=== PATIENT | female | born 1935 | race Asian ===

== ENCOUNTER 2017-04-07 13:42 | Inpatient (IN) | payer MEDICARE, MEDICAID ==
[~2017-04-07] VITALS: Ht 162.6 cm; Wt 63.5 kg
--- NOTE | 2017-04-07 13:48 | Emergency Room Report ---
History of Present Illness General Chief Complaint: Generalized Weakness Source: Patient, EMS Present Illness HPI Patient is 81-year-old female brought in by EMS after increased generalized weakness and decreased appetite. Patient had prior history of seizure disorder as well as dementia. She not been eating for the past 3 days. Patient had been a generalized weak. She has a caregiver at home. Patient had been sent in from [facility]. Patient's primary care physician and requested Dr. Harper take care of the patient. Allergies: Coded Allergies: No Known Allergies (Unverified , 04/07/17) Patient History Past Medical History: see triage record Reviewed Nursing Documentation: PMH: Agreed, PSxH: Agreed Review of Systems All Other Systems: limited - by mental status Physical Exam Sp02 EP Interpretation: reviewed, normal General Appearance: normal inspection, well appearing, no apparent distress, alert, GCS 15 Head: atraumatic ENT: normal ENT inspection, hearing grossly normal, normal voice Neck: normal inspection, full range of motion, supple, no bony tend Respiratory: normal inspection, lungs clear, normal breath sounds, no respiratory distress, no retraction, no wheezing Cardiovascular #1: regular rate, rhythm, no edema Gastrointestinal: normal inspection, normal bowel sounds, non tender, soft, no guarding, no hernia Genitourinary: no CVA tenderness Musculoskeletal: normal inspection, back normal, normal range of motion Neurologic: normal inspection, alert, responsive, speech normal Psychiatric: normal inspection, judgement/insight normal, mood/affect normal Skin: normal inspection, normal color, no rash Medical Decision Making Diagnostic Impression: Primary Impression: Episode of generalized weakness Additional Impressions: Dehydration Failure to thrive ER Course Patient presented for generalized weakness.Patient presented for generalized weakness. Differential diagnosis included was not limited to anemia, urinary tract infection, electrolyte abnormality, hypothyroidism, myocardial infarction , myasthenia gravis, dehydration, among others. Because of complexity of patient's case laboratory testing and imaging studies were ordered.Patient started on IV fluids. EKG interpreted by me showed normal sinus rhythm with a rate of [address] or T wave changes. Patient was discussed with Dr. Riley Harper for inpatient management. Labs Test 04/07/17 13:50 04/07/17 14:25 White Blood Count 7.3 K/UL (4.8-10.8) Red Blood Count 3.41 M/UL (4.20-5.40) Hemoglobin 10.4 G/DL (12.0-16.0) Hematocrit 31.7 % (37.0-47.0) Mean Corpuscular Volume 93 FL (80-99) Mean Corpuscular Hemoglobin 30.6 PG (27.0-31.0) Mean Corpuscular Hemoglobin Concent 32.9 G/DL (32.0-36.0) Red Cell Distribution Width 11.6 % (11.6-14.8) Platelet Count 338 K/UL (150-450) Mean Platelet Volume 5.9 FL (6.5-10.1) Neutrophils (%) (Auto) 60.5 % (45.0-75.0) Lymphocytes (%) (Auto) 30.2 % (20.0-45.0) Monocytes (%) (Auto) 6.7 % (1.0-10.0) Eosinophils (%) (Auto) 1.6 % (0.0-3.0) Basophils (%) (Auto) 1.0 % (0.0-2.0) Sodium Level 142 mEQ/L (135-145) Potassium Level 3.9 mEQ/L (3.4-4.9) Chloride Level 103 mEQ/L (98-107) Carbon Dioxide Level 25 mEQ/L (20-30) Anion Gap 14 (5-15) Blood Urea Nitrogen 29 mg/dL (7-23) Creatinine 0.7 mg/dL (0.5-0.9) Estimat Glomerular Filtration Rate mL/min (>60) Glucose Level 138 mg/dL (74-106) Lactic Acid Level 1.10 mmol/L (0.66-2.22) Calcium Level 9.6 mg/dL (8.6-10.2) Total Bilirubin 0.9 mg/dL (0.0-1.2) Aspartate Amino Transf (AST/SGOT) 19 U/L (5-40) Alanine Aminotransferase (ALT/SGPT) 6 U/L (3-33) Alkaline Phosphatase 62 U/L (35-104) Total Creatine Kinase 275 U/L (26-140) Creatine Kinase MB 4.6 ng/mL (< 3.8) Creatine Kinase MB Relative Index 1.6 Troponin I < 0.30 ng/mL (<=0.30) Total Protein 6.5 g/dL (6.6-8.7) Albumin 4.3 g/dL (3.5-5.2) Globulin 2.2 g/dL Albumin/Globulin Ratio 1.9 (1.0-2.7) Lipase 30 U/L (< 60) Urine Color Yellow Urine Appearance Clear Urine pH 6 (4.5-8.0) Urine Specific [place] 1.020 (1.005-1.035) Urine Protein 1+ (NEGATIVE) Urine Glucose (UA) Negative (NEGATIVE) Urine Ketones Negative (NEGATIVE) Urine Occult Blood Negative (NEGATIVE) Urine Nitrite Negative (NEGATIVE) Urine Bilirubin 1+ (NEGATIVE) Urine Ictotest Negative Urine Urobilinogen 4 MG/DL (0.0-1.0) Urine Leukocyte Esterase 1+ (NEGATIVE) Urine RBC 0-2 /HPF (0 - 2) Urine WBC 2-4 /HPF (0 - 2) Urine Squamous Epithelial Cells Few /LPF (NONE/OCC) Urine Bacteria Few /HPF (NONE) EKG Diagnostic Results Rate: normal Rhythm: NSR ST Segments: no acute changes Rhythm Strip Diag. Results EP Interpretation: yes Rhythm: NSR, no PVC's, no ectopy, other Status: unchanged Disposition: ADMITTED INPATIENT Condition: Serious Tahir Bull April 07, 2017 13:48
[2017-04-07 14:34] VITALS: BP 134/59
[2017-04-07 14:36] LABS: EOSINOPHILS % (AUTO) 1.6 % (0.0-3.0); LYMPHOCYTES % (AUTO) 30.2 % (20.0-45.0); MEAN CORPUSCULAR HEMOGLOBIN 30.6 PG (27.0-31.0); MEAN CORPUSCULAR HGB CONC 32.9 G/DL (32.0-36.0); MEAN CORPUSCULAR VOLUME 93 FL (80-99); MEAN PLATELET VOLUME 5.9 FL (6.5-10.1); MONOCYTES % (AUTO) 6.7 % (1.0-10.0); NEUTROPHILS % (AUTO) 60.5 % (45.0-75.0); PLATELET COUNT 338 K/UL (150-450); RED BLOOD COUNT 3.41 M/UL (4.20-5.40); RED CELL DISTRIBUTION WIDTH 11.6 % (11.6-14.8); WHITE BLOOD COUNT 7.3 K/UL (4.8-10.8)
[2017-04-07 14:40] LABS: APPEARANCE,URINE CLEAR; KETONES,URINE NEGATIVE (NEGATIVE); LEUKOCYTE ESTERASE ,URINE 1+ (NEGATIVE); NITRITE,URINE NEGATIVE (NEGATIVE); PH,URINE 6 (4.5-8.0); PROTEIN,URINE 1+ (NEGATIVE); UROBILINOGEN,URINE 4 MG/DL (0.0-1.0)
[2017-04-07 14:44] LABS: TROPONIN I < 0.30 ng/mL (<=0.30)
[2017-04-07 14:47] LABS: ALANINE AMINOTRANSFERASE 6 U/L (3-33); ALBUMIN/GLOBULIN RATIO 1.9 (1.0-2.7); ANION GAP 14 (5-15); ASPARTATE AMINO TRANSFERASE 19 U/L (5-40); CALCIUM 9.6 mg/dL (8.6-10.2); CARBON DIOXIDE 25 mEQ/L (20-30); CHLORIDE 103 mEQ/L (98-107); CREATININE 0.7 mg/dL (0.5-0.9); HEMOLYSIS 6; LIPASE 30 U/L (< 60); POTASSIUM 3.9 mEQ/L (3.4-4.9); SODIUM 142 mEQ/L (135-145); TOTAL PROTEIN 6.5 g/dL (6.6-8.7)
[2017-04-07 14:57] LABS: CKMB 4.6 ng/mL (< 3.8)
[2017-04-07 14:57] LABS: BACTERIA,URINE FEW /HPF; ICTOTEST NEGATIVE; RBC,URINE 0-2 /HPF (0 - 2); SQUAMOUS EPITHELIAL CELL,UR FEW /LPF (NONE/OCC)
[2017-04-07] MEDS ORDERED: SINEMET 25-1001 EAC1 ORAL (15:08)
[2017-04-07] MEDS ORDERED: ZOLPIDEM TARTRAT5 MG ORAL (15:08)
[2017-04-07] MEDS ORDERED: NITROGLYCERIN0.4 MG SL (15:08)
[2017-04-07] MEDS ORDERED: DOCUSATE SODIU100 MG ORAL (15:08)
[2017-04-07] MEDS ORDERED: CLOPIDOGREL75 MG ORAL (15:08)
[2017-04-07] MEDS ORDERED: MILK OF MA400 MG/51 ORAL (15:08)
[2017-04-07] MEDS ORDERED: RESTASIS1 EACH BOTH EYES (15:08)
[2017-04-07] MEDS ORDERED: FERROUS SULFAT325 MG ORAL (15:08)
[2017-04-07] MEDS ORDERED: LOMOTIL TABLET1 EACH ORAL (15:08)
[2017-04-07] MEDS ORDERED: KLONOPIN0.5 MG ORAL (15:08)
[2017-04-07] MEDS ORDERED: MOBIC15 MG ORAL (15:08)
[2017-04-07] MEDS ORDERED: ARICEPT10 MG ORAL (15:08)
[2017-04-07] MEDS ORDERED: ACETAMINOPHEN325 M1 ORAL (15:08)
[2017-04-07] MEDS ORDERED: ZOFRAN4 M3 ORAL (15:08)
[2017-04-07] MEDS ORDERED: PROTONIX20 MG ORAL (15:08)
[2017-04-07] MEDS ORDERED: MULTIVITAMINS1 EAC8 ORAL (15:08)
[2017-04-07] MEDS ORDERED: NAMENDA10 MG ORAL (15:08)
[2017-04-07] MEDS ORDERED: NEURONTIN100 MG ORAL (15:08)
[2017-04-07] MEDS ORDERED: TOPIRAMATE25 MG ORAL (15:08)
[2017-04-07] MEDS ORDERED: MIRTAZAPINE15 MG ORAL (15:08)
[2017-04-07 16:35] VITALS: BP 116/52
[2017-04-07] MEDS ORDERED: Nitroglycerin Subl 0.4mg tab (Bottle Of 25) SL PRN (16:45)
[2017-04-07] MEDS ORDERED: Milk of Magnesia 30ml Ud ORAL PRN (16:45)
[2017-04-07 17:34] VITALS: BP 125/61
[2017-04-07] MEDS: Memantine 10mg tab ORAL SCH (18:51)
[2017-04-07] MEDS: clonazePAM 0.5mg tab ORAL SCH (18:51)
[2017-04-07] MEDS: Docusate 100mg cap ORAL SCH (18:51)
[2017-04-07] MEDS: D5 1/2NS 1,000 ML IV SCH (18:52)
[2017-04-07] MEDS: Sinemet 25/100 tab ORAL SCH (18:52)
[2017-04-07 20:00] VITALS: BP 124/66
[2017-04-08] VITALS: BP 141/75
[2017-04-08 04:00] VITALS: BP 128/91
[2017-04-08 08:00] VITALS: BP 138/81
[2017-04-08] MEDS ORDERED: Meloxicam 15 MG TAB ORAL SCH (09:00)
[2017-04-08] MEDS ORDERED: Multivitamin w/Minerals tab ORAL SCH (09:00)
[2017-04-08] MEDS ORDERED: Donepezil 10mg tab ORAL SCH (09:00)
[2017-04-08] MEDS: Sinemet 25/100 tab ORAL SCH ×3 (09:26→17:34)
[2017-04-08] MEDS: D5 1/2NS 1,000 ML IV SCH (09:26)
[2017-04-08] MEDS: clonazePAM 0.5mg tab ORAL SCH ×2 (09:26→17:34)
[2017-04-08] MEDS: Memantine 10mg tab ORAL SCH ×2 (09:26→17:34)
[2017-04-08] MEDS: Docusate 100mg cap ORAL SCH (10:12)
--- NOTE | 2017-04-08 10:16 | History and Physical Report ---
DATE OF ADMISSION: 04/07/2017 CHIEF COMPLAINT: Encephalopathy, diarrhea, generalized weakness. HISTORY OF PRESENT ILLNESS: The patient is an elderly Tajik female with a history of Parkinson disease, anxiety disorder, hypertension, and hyperlipidemia. She has a history of seizure disorder. She was transferred from a custodial facility with complaint of generalized weakness and altered mentation. According to staff, the patient had been having some diarrhea. On evaluation in the emergency room, the patient was weak, withdrawn, and not at baseline according to the patient's caregiver. Her laboratory tests show a white count of 7. Her urine was clear. Chemistries showed an elevated CK and elevated CK-MB. Her troponin was negative. In light of the patient's altered mentation, she is now admitted for further evaluation and care. The patient is mostly Tajik speaking. She is slightly confused according to weld engineer. PAST MEDICAL HISTORY: As above. PAST SURGICAL HISTORY: Unknown. CURRENT MEDICATIONS: Reconciled and reviewed. ALLERGIES: None. SOCIAL HISTORY: There is no known history of tobacco, ethanol, or drugs. FAMILY HISTORY: Unknown. REVIEW OF SYSTEMS: Unobtainable as the patient is confused. PHYSICAL EXAMINATION: VITAL SIGNS: Temperature 96.4 degrees, pulse 68, respirations 18, and blood pressure 120/91. GENERAL: The patient is well-developed female in no apparent distress. She is awake. She is calm. NECK: Supple. HEART: Regular rate and rhythm. LUNGS: Lungs are clear. ABDOMEN: Soft , nontender, and nondistended. EXTREMITIES: Without clubbing or cyanosis. NEUROLOGIC: The patient has some bradykinesia, but no tremors. She does move all four extremities. LABORATORY DATA: White count 7 and hemoglobin 10. Urinalysis unremarkable. Sodium 142, potassium 3.9, and creatinine was 0.7. ASSESSMENT: This is an elderly female with complaints of altered mentation, unclear etiology possibly secondary to gastroenteritis need to rule out Clostridium difficile colitis. Problem list, 1. Generalized weakness. 2. Encephalopathy, unclear etiology. 3. Diarrhea rule out gastroenteritis rule out Clostridium difficile colitis. 4. Parkinson disease. 5. History of seizure disorder. 6. History of angina. PLAN: IV hydration. Check a stool for C. difficile. Monitor for seizures. Continue antihypertensive regimen. Jaden Dangelo M.D. DR: Fatou JOB#: [id number] CC:
[2017-04-08 12:00] VITALS: BP 141/72
[2017-04-08] MEDS: Docusate 100mg/10ml Liq ORAL SCH ×2 (12:10→17:34)
[2017-04-08 16:00] VITALS: BP 147/77
[2017-04-08] MEDS ORDERED: D5 1/2NS 1000ml IV ONE (18:34)
[2017-04-08 20:00] VITALS: BP 114/68
[2017-04-08] MEDS ORDERED: Nitroglycerin Subl 0.4mg tab (Bottle Of 25) SL PRN (23:00)
[2017-04-08] MEDS ORDERED: D5 1/2NS 1,000 ML IV SCH (23:00)
[2017-04-09] VITALS: BP 133/64
[2017-04-09 04:00] VITALS: BP 131/65
[2017-04-09 05:37] LABS: BASOPHILS % (AUTO) 0.7 % (0.0-2.0); MEAN CORPUSCULAR HEMOGLOBIN 31.1 PG (27.0-31.0); MEAN CORPUSCULAR HGB CONC 33.7 G/DL (32.0-36.0); MEAN CORPUSCULAR VOLUME 92 FL (80-99); MEAN PLATELET VOLUME 5.9 FL (6.5-10.1); MONOCYTES % (AUTO) 6.4 % (1.0-10.0); NEUTROPHILS % (AUTO) 70.9 % (45.0-75.0); PLATELET COUNT 290 K/UL (150-450); RED BLOOD COUNT 3.33 M/UL (4.20-5.40); RED CELL DISTRIBUTION WIDTH 11.5 % (11.6-14.8)
--- NOTE | 2017-04-09 06:15 | Progress Note ---
DATE: 04/08/2017 CARDIOLOGY PROGRESS NOTE SUBJECTIVE: The patient is an awake and alert female. She is in no distress. She does not appear to have any pain. There is no sign of shortness of breath. Monitored rhythm is sinus with arrhythmia. The head CT revealed no abnormalities. OBJECTIVE: VITAL SIGNS: Blood pressure 147/77, pulse 80, respirations 20, afebrile, and oxygen saturation on room air is 93% to 97%. GENERAL: Withdrawn. LUNGS: Diminished breath sounds. HEART: Regular rhythm and rate. Normal S1, S2. ABDOMEN: Soft. EXTREMITIES: No edema. IMPRESSION: 1. Acute encephalopathy. 2. Cerebrovascular accident. 3. Sinus arrhythmia. 4. Hypertensive heart disease. 5. Parkinson disease. 6. Seizure disorder. PLAN: 1. Cardiac monitoring. 2. Avoid tight blood pressure control. 3. Maintain adequate hydration. 4. Await EEG. 5. Antiplatelet therapy. 6. Remains high risk. Riley Harper M.D. DR: Herber JOB#: [id number] CC:
[2017-04-09 06:54] LABS: ALANINE AMINOTRANSFERASE 5 U/L (3-33); ALBUMIN/GLOBULIN RATIO 1.4 (1.0-2.7); ANION GAP 16 (5-15); ASPARTATE AMINO TRANSFERASE 15 U/L (5-40); CALCIUM 8.8 mg/dL (8.6-10.2); CARBON DIOXIDE 23 mEQ/L (20-30); CHLORIDE 105 mEQ/L (98-107); CREATININE 0.6 mg/dL (0.5-0.9); HEMOLYSIS 17; POTASSIUM 3.4 mEQ/L (3.4-4.9); SODIUM 144 mEQ/L (135-145); TOTAL PROTEIN 6.3 g/dL (6.6-8.7)
[2017-04-09 08:00] VITALS: BP 135/70
[2017-04-09] MEDS ORDERED: Meloxicam 15 MG TAB ORAL SCH (09:00)
[2017-04-09] MEDS ORDERED: Aspirin Baby 81mg ORAL SCH (09:00)
--- NOTE | 2017-04-09 09:15 | Consultation ---
DATE OF CONSULTATION: 04/07/2017 REQUESTING PHYSICIAN: REASON FOR CONSULTATION: Encephalopathy in the setting of hypertensive heart disease. HISTORY: This is an 81-year-old [place] female residing at a care home facility. She was transported lethargy, weakness, and anorexia of 3 days' duration. The patient does have an underlying history of cerebrovascular disease, dementia, and seizure disorder. She has noted symptoms her baseline. The patient apparently has not been eating well for 3 days. ALLERGIES: None. MEDICATIONS: Prior admission reviewed and reconciled. SOCIAL HISTORY: Negative for smoking, alcohol, or substance abuse. FAMILY HISTORY: Noncontributory. PAST MEDICAL HISTORY: Parkinson disease, seizure disorder, cerebrovascular disease, hypertension with hypertensive heart disease, hyperlipidemia. REVIEW OF SYSTEMS: Cannot be reliably obtained from the patient. PHYSICAL EXAMINATION: VITAL SIGNS: Temperature is 99 rectally, blood pressure 116/52, heart rate 61, respiratory rate 15, oxygen saturation 97% on room air. HEENT: Temporal wasting. Pale conjunctivae. Dry mucous membranes. NECK: Supple. LUNGS: With diminished breath sounds. No wheezing or rales. CARDIAC: Regular rhythm and rate. Normal S1 and S2 with a fourth heart sound and a 1/6 systolic murmur at the base. ABDOMEN: Soft, flat, nontender. No guarding or rebound. EXTREMITIES: Without clubbing, cyanosis, or edema. Decreased capillary refill. NEUROLOGIC: Non-intention tremor. Moderate cognitive impairment. Alert and oriented to name only. LABORATORY DATA: Sodium , potassium 3.9, bicarbonate 25, BUN 29 creatinine 0.7. Troponin negative. Albumin 4.3. White count 7.3, hemoglobin 10.4. Urinalysis shows only 2 to 4 white cells. EKG with sinus rhythm and no acute abnormalities. Chest x-ray is pending for review. IMPRESSION: Acute encephalopathy, possible sepsis, hypovolemia and dehydration, hypertensive heart disease, Parkinson disease, cerebrovascular disease with seizure disorder. CONSIDERATIONS AND PLAN: Hydration, panculture, imaging of the brain, possible EEG, cardiac monitoring, blood pressure control. Riley Harper M.D. DR: THOMAS JOB#: [id number] CC:
--- NOTE | 2017-04-09 09:45 | Diagnostic Imaging Report ---
Indications: Altered mental status Technique: Continuous helical CT imaging of the brain was performed with nonionic exposure control on a Siemens sensation [address] scanner. Axial and coronal images were reconstructed at 5 mm slice thickness and interval. CTDI volume(s): 70 mGy Total DLP: 1576 mGy-cm Findings: Comparison: None Confluent low attenuation is present in the bilateral periventricular and deep cerebral white matter. This is focally more prominent in the left fuentes radiata. Discrete circumscribed foci of low attenuation/parenchymal loss right thalamus, left putamen. Ventricles, cisterns, and sulci are diffusely prominent. No evidence of mass or hemorrhage, mass effect, midline shift, hydrocephalus, or increased intracranial pressure. Bone window images are unremarkable. Opacification right mastoid air cells. Visualized paranasal sinuses and left mastoid air cells are clear. IMPRESSION: Left fuentes radiata focal low-attenuation most likely ischemic, acuity indeterminate. If clinically indicated, consider MRI for further evaluation Lacunar infarct right thalamus, left basal ganglia. Bilateral cerebral periventricular and deepwhite matter low attenuation, nonspecific, likely chronic microvascular ischemic in nature Atrophy Right mastoid air cell underdevelopment and/or mastoiditis Written preliminary report placed in PACS 04/08/[address] scanner at [facility] is accredited by the [employer] and the scans are performed using protocols designed to limit radiation exposure to as low as reasonably achievable to attain images of sufficient resolution adequate for diagnostic evaluation.
[2017-04-09] MEDS: Docusate 100mg/10ml Liq ORAL SCH ×2 (10:34→18:00)
[2017-04-09] MEDS: Aspirin Baby 81mg ORAL SCH (10:34)
[2017-04-09] MEDS: Sinemet 25/100 tab ORAL SCH ×3 (10:35→17:20)
[2017-04-09] MEDS: Donepezil 10mg tab ORAL SCH (10:35)
[2017-04-09] MEDS: clonazePAM 0.5mg tab ORAL SCH ×2 (10:35→17:18)
[2017-04-09] MEDS: Multivitamin w/Minerals tab ORAL SCH (10:36)
[2017-04-09] MEDS: Memantine 10mg tab ORAL SCH ×2 (10:36→17:19)
[2017-04-09 12:00] VITALS: BP 136/70
--- NOTE | 2017-04-09 12:11 | General Progress Note ---
Assessment/Plan Problem List: (1) CVA (cerebral vascular accident) ICD Codes: I63.9 - Cerebral infarction, unspecified SNOMED: 510174582 (2) Dehydration ICD Codes: E86.0 - Dehydration SNOMED: 34548774 (3) Episode of generalized weakness ICD Codes: R53.1 - Weakness SNOMED: 30016470 (4) Generalized weakness ICD Codes: R53.1 - Weakness SNOMED: 19400451 (5) Failure to thrive (6) Dehydration ICD Codes: E86.0 - Dehydration SNOMED: 13618003 Status: stable, not improved Assessment/Plan on dual antiplt rx monitor for afib/arrhythmia check echo and carotid duplex neuro eval called ivf adjusted(k added) check swallow d/w family at the bedside plan of care Subjective ROS Limited/Unobtainable: No Constitutional: Reports: malaise, weakness HEENT: Reports: no symptoms Cardiovascular: Reports: no symptoms Respiratory: Reports: no symptoms Gastrointestinal/Abdominal: Reports: no symptoms Genitourinary: Reports: no symptoms Neurologic/Psychiatric: Reports: pre-existing deficit Endocrine: Reports: no symptoms Hematologic/Lymphatic: Reports: no symptoms Allergies: Coded Allergies: No Known Allergies (Unverified , 04/07/17) All Systems: reviewed and negative except above Subjective transferred to tele. CT scan last night showed possible acute/subacute cva. family notes definite change in mental status since monday. +history of stroke Objective Last 24 Hour Vital Signs Date Time Temp Pulse Resp B/P Pulse Ox O2 Delivery O2 Flow Rate FiO2 04/09/17 08:00 97.7 82 16 135/70 96 Room Air 04/09/17 04:00 59 04/09/17 04:00 97.5 71 18 131/65 100 Room Air 04/09/17 00:00 66 04/09/17 00:00 97.4 65 18 133/64 97 Room Air 04/08/17 21:42 64 04/08/17 20:00 97.2 72 20 114/68 95 Room Air 04/08/17 16:00 97.2 80 20 147/77 93 Room Air Intake and Output 04/08/17 04/09/17 19:00 07:00 Intake Total 900 ml 770 ml Balance 900 ml 770 ml Intake Oral 200 ml IV Total 700 ml 770 ml # Voids 4 4 # Bowel Movements 2 1 Laboratory Tests 04/09/17 04:10: White Blood Count 8.0, Red Blood Count 3.33L, Hemoglobin 10.4L, Hematocrit 30.7L , Mean Corpuscular Volume 92, Mean Corpuscular Hemoglobin 31.1H, Mean Corpuscular Hemoglobin Concent 33.7, Red Cell Distribution Width 11.5L, Platelet Count 290, Mean Platelet Volume 5.9L, Neutrophils (%) (Auto) 70.9, Lymphocytes (%) (Auto) 20.0, Monocytes (%) (Auto) 6.4, Eosinophils (%) (Auto) 2.0, Basophils (%) (Auto) 0.7, Sodium Level 144, Potassium Level 3.4, Chloride Level 105, Carbon Dioxide Level 23, Anion Gap 16H, Blood Urea Nitrogen 12, Creatinine 0.6, Estimat Glomerular Filtration Rate , Glucose Level 150H, Calcium Level 8.8, Total Bilirubin 0.9, Aspartate Amino Transf (AST/SGOT) 15, Alanine Aminotransferase (ALT/SGPT) 5, Alkaline Phosphatase 61, Total Protein 6.3L, Albumin 3.7, Globulin 2.6, Albumin/Globulin Ratio 1.4, Thyroid Stimulating Hormone (TSH) 1.710 Height (Feet): 5 Height (Inches): 4.00 Weight (Pounds): 140 General Appearance: WD/WN, lethargic Neck: supple Cardiovascular: regular rhythm Respiratory/Chest: lungs clear Abdomen: normal bowel sounds, non tender, soft, no organomegaly Neurologic: other - weak and drowsy. confused per family at the bedside. Skin: normal pigmentation SHAINA [place] April 09, 2017 12:10
--- NOTE | 2017-04-09 14:48 | Cardiology Report ---
APPROVED REPORT EKG Measurement Heart [id number] Sinus rhythm with premature atrial complexes Nonspecific T wave abnormality Prolonged QT Abnormal ECG
[2017-04-09 16:00] VITALS: BP 133/68
[2017-04-09] MEDS ORDERED: Milk of Magnesia 30ml Ud ORAL PRN (16:45)
[2017-04-09] MEDS: D5 1/2NS w/KCl 20mEq 1,000 ML IV SCH (17:38)
--- NOTE | 2017-04-09 23:30 | Progress Note ---
DATE: 04/09/2017 CARDIOLOGY PROGRESS NOTE SUBJECTIVE: The patient is remaining withdrawn. Acute changes on CAT scan made aware to family members. OBJECTIVE: VITAL SIGNS: Blood pressure 135/70, pulse 83, and respirations 16. LUNGS: Bilateral breath sounds. HEART: Regular rhythm and rate. Normal S1 and S2. ABDOMEN: Soft. EXTREMITIES: No edema. LABORATORY AND DIAGNOSTIC DATA: Head CT as noted. White count 8 and hemoglobin 10.4. Sodium 144, potassium 3.4, bicarbonate 23, BUN 12, creatinine 0.6, and glucose 150. TSH is 1.7. IMPRESSION: 1. Possible acute cerebrovascular accident. 2. Encephalopathy likely secondary to above. 3. Mild dehydration. 4. Acute on chronic renal failure. 5. Hypertensive heart disease. 6. Cerebrovascular disease with dementia. PLAN: 1. Cautious hydration. 2. Anti-platelet therapy. 3. Discontinue Mobic. 4. Follow up MRI of the brain. Riley Harper M.D. DR: ALYSIA JOB#: [id number] CC:
[2017-04-10] VITALS: BP 136/63
[2017-04-10] MEDS: D5 1/2NS w/KCl 20mEq 1,000 ML IV SCH ×2 (02:20→09:56)
[2017-04-10 04:00] VITALS: BP 141/71
[2017-04-10 07:38] LABS: ALANINE AMINOTRANSFERASE 11 U/L (3-33); ALBUMIN/GLOBULIN RATIO 1.4 (1.0-2.7); ANION GAP 13 (5-15); ASPARTATE AMINO TRANSFERASE 19 U/L (5-40); CALCIUM 9.3 mg/dL (8.6-10.2); CARBON DIOXIDE 26 mEQ/L (20-30); CHLORIDE 104 mEQ/L (98-107); CREATININE 0.6 mg/dL (0.5-0.9); HEMOLYSIS 11; POTASSIUM 3.9 mEQ/L (3.4-4.9); SODIUM 143 mEQ/L (135-145); TOTAL PROTEIN 7.1 g/dL (6.6-8.7)
[2017-04-10 08:00] VITALS: BP 136/75
[2017-04-10] MEDS: Aspirin Baby 81mg ORAL SCH (08:44)
[2017-04-10] MEDS: Donepezil 10mg tab ORAL SCH (08:44)
[2017-04-10] MEDS: Docusate 100mg/10ml Liq ORAL SCH ×2 (08:44→18:45)
[2017-04-10] MEDS: Sinemet 25/100 tab ORAL SCH ×3 (08:44→18:45)
[2017-04-10] MEDS: Multivitamin w/Minerals tab ORAL SCH (08:45)
[2017-04-10] MEDS: clonazePAM 0.5mg tab ORAL SCH (08:45)
[2017-04-10] MEDS: Memantine 10mg tab ORAL SCH (08:45)
--- NOTE | 2017-04-10 11:15 | Neurology Progress Note ---
Interim History Interim History ROS Limited/Unobtainable: No Objective Physical Exam Last Vital Signs Date Time Temp Pulse Resp B/P Pulse Ox O2 Delivery O2 Flow Rate FiO2 04/10/17 08:00 96.6 53 18 136/75 90 Room Air Laboratory Tests Test 04/10/17 04:50 Sodium Level 143 mEQ/L (135-145) Potassium Level 3.9 mEQ/L (3.4-4.9) Chloride Level 104 mEQ/L (98-107) Carbon Dioxide Level 26 mEQ/L (20-30) Anion Gap 13 (5-15) Blood Urea Nitrogen 10 mg/dL (7-23) Creatinine 0.6 mg/dL (0.5-0.9) Estimat Glomerular Filtration Rate mL/min (>60) Glucose Level 161 mg/dL (74-106) H Calcium Level 9.3 mg/dL (8.6-10.2) Total Bilirubin 1.0 mg/dL (0.0-1.2) Aspartate Amino Transf (AST/SGOT) 19 U/L (5-40) Alanine Aminotransferase (ALT/SGPT) 11 U/L (3-33) Alkaline Phosphatase 79 U/L (35-104) Total Protein 7.1 g/dL (6.6-8.7) Albumin 4.2 g/dL (3.5-5.2) Globulin 2.9 g/dL Albumin/Globulin Ratio 1.4 (1.0-2.7) Impression/Recommendations Problems: (1) Acute ischemic left middle cerebral artery (MCA) stroke (2) vascular dementia,advanced Status: stable, not improved Recommendations #[id number] MIL ELLIS April 10, 2017 11:15
[2017-04-10 11:51] VITALS: BP 142/65
--- NOTE | 2017-04-10 13:58 | Diagnostic Imaging Report ---
APPROVED REPORT CPT Code: 65658 Vascular Symptoms CVA/TIA: Doppler Spectral Velocity Analysis RightLeft carotid arteries and right and left external carotid arteries. ICA - Imaging reveals irregular plaque in the internal carotid arteries. The Doppler signal indicates the degree of stenosis is mild (30% - 40%) in the internal carotid arteries. VERTEBRAL- The vertebral arteries are patent without evidence of stenosis or steal.
[2017-04-10 16:00] VITALS: BP 148/77
[2017-04-10] MEDS ORDERED: D5 1/2NS 1000ml IV ONE (17:04)
--- NOTE | 2017-04-10 19:00 | Consultation ---
DATE OF CONSULTATION: 04/10/2017 CONSULTING PHYSICIAN: Nicholas Early M.D. ATTENDING PHYSICIAN: Riley Harper M.D. REFERRING PHYSICIAN: Jaden Dangelo M.D. HISTORY OF PRESENT ILLNESS: This 81-year-old female was seen in neurological consultation to evaluate acute stroke. According to the patient's daughter as well as from medical records, it is known that the patient at her baseline is able to ambulate with a walker, stooped posture, and was able to speak with limited verbal output and signs of dementia. She had developed progressive generalized weakness, inability to eat, and inability to ambulate. The patient was finally brought to this hospital. Her vital signs on admission were stable. Vital signs on admission included a stable blood pressure of 136/61 and temperature of 97.2. Lab work was obtained revealing mild anemia, hemoglobin 10.4 and hematocrit 31.7. Chemistry panel, BUN was 29, glucose 138, elevated CK of 275 and CK-MB of 4.6 and total protein of 6.5 with normal TSH and lipase. Urinalysis, 1+ leukocyte esterase and 1+ protein. Imaging studies included a carotid duplex study with no hemodynamically significant lesion. CAT scan of the brain without contrast revealed acute left fuentes radiata infarct with lacunar infarcts in the right thalamus and left basal ganglia. There are chronic microvascular ischemic changes as well as left cerebral periventricular deep white matter areas, diffuse atrophy, and right mastoiditis. PAST MEDICAL HISTORY: She has a history of diarrhea in the last few days, Parkinson disease, coronary artery disease, senile dementia, and a history of previous stroke, apparently resolved. Following current admission, the patient remains with poor verbal output and somewhat lethargic. Treatment prior to admission included Namenda, Aricept, Klonopin 0.5 mg b.i.d., Sinemet 25/100 mg t.i.d., cyclosporine drops, clopidogrel 75 mg, gabapentin 200 mg b.i.d., meloxicam, Remeron 7.5 mg, pantoprazole, Topamax 25 mg b.i.d., and zolpidem. ALLERGIES: None reported. SOCIAL HISTORY: Resident of a nursing facility. FAMILY HISTORY: Noncontributory. REVIEW OF SYSTEMS: The patient was able to state that she feels well, but she is incoherent and unable to provide good information. PHYSICAL EXAMINATION: A well-developed somewhat frail elderly female, lying in bed, appears to be asleep, but spontaneously opening eyes with a brief eye contact and smile. Her daughter spoke to her in Danish and the patient was able to follow a few simple commands. She was whispering very quietly yes or no. CRANIAL NERVE II: Pupils both responding to light and accommodation. Extraocular movements intact. Visual kauffman, probably left hemianopia. CRANIAL NERVE V: Corneal responses. CRANIAL NERVE VII: Drooped right nasolabial fold. CRANIAL NERVES IX TO XII: Tongue is in midline. Symmetric palate elevation. Motor examination revealed flaccid right upper and lower extremities, able to lift against the gravity left upper extremity. She was not able to lift the left lower extremity against the gravity, but was able to move the toes and foot up and down. Deep tendon reflexes depressed bilaterally. Plantar response, questionable Babinski's on the right. Sensory exam, withdrawing to pin stimulation both lower extremities. IMPRESSION: 1. Acute left MCA distribution ischemic stroke with right hemiplegia and lethargy. 2. Ischemic cerebrovascular disease, multiple lacunar strokes. 3. Parkinson disease. 4. Senile dementia, advanced. 5. History of hypertension. RECOMMENDATION: Discontinue unessential medications including Aricept, Namenda, meloxicam, and Topamax. Restart on statins and clopidogrel 75 mg daily. Get Speech Therapy with video swallow study. Get PT/OT. Start on range of motion exercises. The patient will need proper placement. Thank you for letting me see this interesting patient in neurological consultation. Nicholas Early M.D. DR: OSIEL JOB#: [id number] CC:
[2017-04-10 20:00] VITALS: BP 150/71
[2017-04-11] VITALS: BP 112/69
[2017-04-11 04:00] VITALS: BP 127/87
[2017-04-11] MEDS: D5 1/2NS w/KCl 20mEq 1,000 ML IV SCH ×2 (05:00→18:17)
--- NOTE | 2017-04-11 07:52 | General Progress Note ---
Assessment/Plan Problem List: (1) CVA (cerebral vascular accident) ICD Codes: I63.9 - Cerebral infarction, unspecified SNOMED: 061417563 (2) Dehydration ICD Codes: E86.0 - Dehydration SNOMED: 12430683 (3) Episode of generalized weakness ICD Codes: R53.1 - Weakness SNOMED: 37108780 (4) Generalized weakness ICD Codes: R53.1 - Weakness SNOMED: 70249090 (5) Failure to thrive (6) Dehydration ICD Codes: E86.0 - Dehydration SNOMED: 17611549 Status: stable Assessment/Plan on dual antiplt rx monitor for afib/arrhythmia check echo and carotid duplex speech rx message left with dtr to discuss gt. await call back. Subjective ROS Limited/Unobtainable: No Constitutional: Reports: malaise, weakness HEENT: Reports: no symptoms Cardiovascular: Reports: no symptoms Respiratory: Reports: cough Gastrointestinal/Abdominal: Reports: difficulty swallowing Genitourinary: Reports: no symptoms Neurologic/Psychiatric: Reports: pre-existing deficit Endocrine: Reports: no symptoms Hematologic/Lymphatic: Reports: no symptoms Allergies: Coded Allergies: No Known Allergies (Unverified , 04/07/17) All Systems: reviewed and negative except above Subjective neuro input appreciated. +acute MCA cva. failed video swallow. Objective Last 24 Hour Vital Signs Date Time Temp Pulse Resp B/P Pulse Ox O2 Delivery O2 Flow Rate FiO2 04/11/17 04:00 97.8 77 20 127/87 97 Room Air 04/11/17 04:00 61 04/11/17 00:00 61 04/11/17 00:00 97.8 65 20 112/69 96 Room Air 04/10/17 20:00 85 04/10/17 20:00 98.2 96 20 150/71 98 Room Air 71.0 04/10/17 16:00 94 04/10/17 16:00 97.0 82 18 148/77 97 Room Air 04/10/17 12:00 67 04/10/17 11:51 97.0 75 17 142/65 98 Room Air 04/10/17 08:00 96.6 53 18 136/75 90 Room Air 04/10/17 08:00 67 Intake and Output 04/10/17 04/11/17 19:00 07:00 Intake Total 635 ml 675 ml Balance 635 ml 675 ml Intake Oral 260 ml IV Total 375 ml 675 ml # Voids 6 1 # Bowel Movements 5 2 Laboratory Tests 04/10/17 13:30: Stool Occult Blood Positive Height (Feet): 5 Height (Inches): 4.00 Weight (Pounds): 140 General Appearance: WD/WN, alert EENT: PERRL/EOMI Neck: non-tender, normal alignment, supple Cardiovascular: normal peripheral pulses, normal rate, regular rhythm Respiratory/Chest: lungs clear Abdomen: normal bowel sounds, non tender, soft Edema: no edema noted Arm (L), no edema noted Arm (R), no edema noted Leg (L), no edema noted Leg (R), no edema noted Pedal (L), no edema noted Pedal (R), no edema noted Generalized Neurologic: motor weakness - right sided weakness SHAINA [place] April 11, 2017 07:52
[2017-04-11 07:54] VITALS: BP 138/55
[2017-04-11 08:16] LABS: BASOPHILS % (AUTO) 0.6 % (0.0-2.0); EOSINOPHILS % (AUTO) 2.6 % (0.0-3.0); LYMPHOCYTES % (AUTO) 26.4 % (20.0-45.0); MEAN CORPUSCULAR HEMOGLOBIN 30.5 PG (27.0-31.0); MEAN CORPUSCULAR HGB CONC 34.1 G/DL (32.0-36.0); MEAN CORPUSCULAR VOLUME 90 FL (80-99); MEAN PLATELET VOLUME 6.1 FL (6.5-10.1); MONOCYTES % (AUTO) 5.9 % (1.0-10.0); NEUTROPHILS % (AUTO) 64.4 % (45.0-75.0); PLATELET COUNT 346 K/UL (150-450); RED BLOOD COUNT 3.84 M/UL (4.20-5.40); RED CELL DISTRIBUTION WIDTH 11.3 % (11.6-14.8)
[2017-04-11] MEDS: Docusate 100mg/10ml Liq ORAL SCH ×2 (09:00→17:34)
[2017-04-11] MEDS: Aspirin Baby 81mg ORAL SCH (10:22)
[2017-04-11] MEDS: Multivitamin w/Minerals tab ORAL SCH (10:22)
[2017-04-11] MEDS: Sinemet 25/100 tab ORAL SCH ×3 (10:22→17:33)
[2017-04-11 11:43] VITALS: BP 125/107
[2017-04-11 15:44] VITALS: BP 117/58
[2017-04-11 20:00] VITALS: BP 139/70
[2017-04-12] VITALS: BP 147/74
--- NOTE | 2017-04-12 02:32 | Progress Note ---
DATE: 04/10/2017 CARDIOLOGY PROGRESS NOTE SUBJECTIVE: The patient is withdrawn. Intake is poor. She failed her swallow evaluation. OBJECTIVE: VITAL SIGNS: Blood pressure 150/71, pulse 85, and respirations 20. LUNGS: Bilateral breath sounds. HEART: Regular rhythm and rate. Normal S1 and S2 with a fourth heart sound. ABDOMEN: Soft. EXTREMITIES: No edema. Moderate cognitive impairment. LABORATORY DATA: Potassium 3.9, BUN 10, and creatinine 0.6. Albumin is 2.9. Glucose is 161. IMPRESSION: 1. Acute cerebrovascular accident. 2. Encephalopathy. 3. Type 2 diabetes mellitus with hyperglycemia. 4. Moderate protein-calorie malnutrition. 5. Dysphagia. 6. Hypertensive heart disease. PLAN: 1. Anti-platelet therapy and anti-lipid therapy. 2. May need feeding tube. 3. Aspiration precautions. 4. Titrate antihypertensives. 5. Maintain adequate hydration. Riley Harper M.D. DR: ALYSIA JOB#: [id number] CC:
--- NOTE | 2017-04-12 02:46 | Progress Note ---
DATE: 04/11/2017 CARDIOLOGY PROGRESS NOTE SUBJECTIVE: The patient is without new distress. Continues to be withdrawn and lethargic. Vital signs are stable. Monitored rhythm sinus. Carotid duplex without significant plaquing. Echocardiogram without signs of cardioembolic source and normal ejection fraction seen without any significant valve pathology. OBJECTIVE: VITAL SIGNS: Blood pressure 138/55, pulse 79, respirations 20, and afebrile. Room air oxygen is 95%. LUNGS: Bilateral breath sounds. No wheezing. HEART: Regular rhythm and rate. Normal S1 and S2. ABDOMEN: Soft. EXTREMITIES: No edema. IMPRESSION: 1. Acute cerebrovascular accident. 2. Dysphagia. 3. Aphasia. 4. Encephalopathy. 5. Moderate protein-calorie malnutrition. PLAN: 1. Anti-platelet and anti-lipid therapy. 2. May need G-tube for nutrition. 3. Maintain adequate hydration. 4. Stress ulcer and DVT prophylaxis. 5. No additional cardiovascular studies presently indicated. Riley Harper M.D. DR: ALYSIA JOB#: [id number] CC:
[2017-04-12 04:00] VITALS: BP 108/59
[2017-04-12] MEDS: D5 1/2NS w/KCl 20mEq 1,000 ML IV SCH ×2 (06:27→20:11)
[2017-04-12 08:17] VITALS: BP 123/71
--- NOTE | 2017-04-12 08:26 | General Progress Note ---
Assessment/Plan Problem List: (1) CVA (cerebral vascular accident) ICD Codes: I63.9 - Cerebral infarction, unspecified SNOMED: 176987271 (2) Dehydration ICD Codes: E86.0 - Dehydration SNOMED: 64493420 (3) Episode of generalized weakness ICD Codes: R53.1 - Weakness SNOMED: 11812576 (4) Generalized weakness ICD Codes: R53.1 - Weakness SNOMED: 20264461 (5) Failure to thrive (6) Dehydration ICD Codes: E86.0 - Dehydration SNOMED: 92894118 Status: stable Assessment/Plan on dual antiplt rx monitor for afib/arrhythmia speech rx d/w dtr about indication for gt. She is considering. She is also requesting transfer to "[facility]" home. specifically requesting [place] Subjective ROS Limited/Unobtainable: Yes Constitutional: Reports: malaise, weakness HEENT: Reports: no symptoms Cardiovascular: Reports: no symptoms Respiratory: Reports: no symptoms Gastrointestinal/Abdominal: Reports: difficulty swallowing Genitourinary: Reports: no symptoms Neurologic/Psychiatric: Reports: pre-existing deficit Endocrine: Reports: no symptoms Hematologic/Lymphatic: Reports: no symptoms Allergies: Coded Allergies: No Known Allergies (Unverified , 04/07/17) All Systems: reviewed and negative except above Subjective no events. failed video swallow. d/w dtr kenrick regarding gt. aware of speech recs and concerns about aspiration. Objective Last 24 Hour Vital Signs Date Time Temp Pulse Resp B/P Pulse Ox O2 Delivery O2 Flow Rate FiO2 04/12/17 08:17 97.0 90 20 123/71 97 Room Air 04/12/17 04:00 61 04/12/17 04:00 97.9 68 21 108/59 97 Room Air 04/12/17 00:00 97 04/12/17 00:00 97.8 70 20 147/74 96 Room Air 04/11/17 20:00 96.8 86 20 139/70 97 Room Air 04/11/17 20:00 93 04/11/17 15:46 94 04/11/17 15:44 98.2 87 20 117/58 95 Room Air 04/11/17 11:58 97 04/11/17 11:43 98.0 96 20 125/107 95 Room Air Intake and Output 04/11/17 04/12/17 19:00 07:00 Intake Total 990 ml 900 ml Balance 990 ml 900 ml Intake Oral 240 ml IV Total 750 ml 900 ml # Voids 7 1 # Bowel Movements 4 2 Height (Feet): 5 Height (Inches): 4.00 Weight (Pounds): 140 Objective General Appearance: WD/WN, alert EENT: PERRL/EOMI Neck: non-tender, normal alignment, supple Cardiovascular: normal peripheral pulses, normal rate, regular rhythm Respiratory/Chest: lungs clear Abdomen: normal bowel sounds, non tender, soft Edema: no edema noted Arm (L), no edema noted Arm (R), no edema noted Leg (L), no edema noted Leg (R), no edema noted Pedal (L), no edema noted Pedal (R), no edema noted Generalized Neurologic: motor weakness - right sided weakness SHAINA MON[place]NA April 12, 2017 08:26
[2017-04-12] MEDS: Multivitamin w/Minerals tab ORAL SCH (08:53)
[2017-04-12] MEDS: Docusate 100mg/10ml Liq ORAL SCH ×4 (08:53→18:00)
[2017-04-12] MEDS: Sinemet 25/100 tab ORAL SCH ×3 (08:53→18:16)
[2017-04-12] MEDS: Aspirin Baby 81mg ORAL SCH (08:53)
--- NOTE | 2017-04-12 10:54 | Cardiology Report ---
APPROVED REPORT EXAM: Two-dimensional and M-mode echocardiogram with Doppler and color Doppler. INDICATION CVA/TIA M-Mode DIMENSIONS IVSd0.9 (0.7-1.1cm)Left Atrium (MM)3.9 (1.6-4.0cm) LVDd5.1 (3.5-5.6cm)Aortic Root4.0 (2.0-3.7cm) PWd1.2 (0.7-1.1cm)Aortic Cusp Exc.2.8 (1.5-2.0cm) LVDs3.3 (2.5-4.0cm) PWs1.2 cm Normal left ventricular chamber size, systolic function and wall motion. Left ventricular ejection fraction estimated to be 55 %. No evidence of ventricular hypertrophy. Small pericardial effusion. All other cardiac chamber sizes are within normal limits. Mild focal aortic valve sclerosis with adequate cusp excursion. Mildly thickened mitral valve leaflets with normal excursion. Mild mitral annulus and aortic root calcification. Pulmonic valve not well visualized. Normal tricuspid valve structure. IVC at normal size with physiologic collapse. A color flow and spectral Doppler study was performed and revealed: No aortic regurgitation. Trace mitral regurgitation. Mitral diastolic velocities suggest reduced left ventricular relaxation (Grade I). Trace tricuspid regurgitation. Tricuspid systolic velocities suggests peak right ventricular systolic pressure of 12 mmHg. No pulmonic regurgitation present.
[2017-04-12 11:42] VITALS: BP 131/65
[2017-04-12 15:51] VITALS: BP 117/86
--- NOTE | 2017-04-12 18:23 | Neurology Progress Note ---
Interim History Interim History ROS Limited/Unobtainable: Yes Complaints: nonverbal Events: sleepy no paroxysmal events Objective Physical Exam Last Vital Signs Date Time Temp Pulse Resp B/P Pulse Ox O2 Delivery O2 Flow Rate FiO2 04/12/17 15:51 97.3 69 20 117/86 97 Room Air 04/10/17 20:00 71.0 General: well developed, well nourished, no acute distress Head: normocophalic, atraumatic Neck: no rigidity Neurologic Exam Mental Status: other - aleepy arousable nonverbal not following commands Speech: other - mute Language: other - comprehension Cranial Nerve II: no papilledema Cranial Nerves III, IV, : EOMI, pupils Cranial Nerve V: normal facial sensations Cranial Nerve VII: other - droop R face Cranial Nerve VIII: no nystagmus Cranial Nerve IX: other - poor gag Cranial Nerve XII: no tongue atrophy/fasciculations Motor System: other - flaccid R side Sensory: other Deep Tendon Reflexes: 0 ankle (L), 0 ankle (R), 0 bicep (L), 0 bicep (R), 0 brachioradialis (L), 0 brachioradialis (R), 0 knee (L), 0 knee (R), 0 tricep (L) , 0 tricep (R) Reflexes: extensor plantar (R) Impression/Recommendations Problems: (1) 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
[2017-04-12 20:17] VITALS: BP 130/66
[2017-04-13 00:04] VITALS: BP 132/64
[2017-04-13 04:00] VITALS: BP 121/82
[2017-04-13 08:00] VITALS: BP 131/78
[2017-04-13 08:34] LABS: EOSINOPHILS % (AUTO) 2.9 % (0.0-3.0); LYMPHOCYTES % (AUTO) 30.8 % (20.0-45.0); MEAN CORPUSCULAR HEMOGLOBIN 30.8 PG (27.0-31.0); MEAN CORPUSCULAR HGB CONC 34.3 G/DL (32.0-36.0); MEAN CORPUSCULAR VOLUME 90 FL (80-99); MONOCYTES % (AUTO) 6.6 % (1.0-10.0); NEUTROPHILS % (AUTO) 58.8 % (45.0-75.0); PLATELET COUNT 375 K/UL (150-450); RED BLOOD COUNT 3.53 M/UL (4.20-5.40); RED CELL DISTRIBUTION WIDTH 11.3 % (11.6-14.8); WHITE BLOOD COUNT 6.8 K/UL (4.8-10.8)
[2017-04-13] MEDS: Sinemet 25/100 tab ORAL SCH ×3 (08:51→18:12)
[2017-04-13] MEDS: Multivitamin w/Minerals tab ORAL SCH (08:51)
[2017-04-13] MEDS: Docusate 100mg/10ml Liq ORAL SCH ×4 (08:51→18:00)
[2017-04-13] MEDS: D5 1/2NS w/KCl 20mEq 1,000 ML IV SCH (09:11)
[2017-04-13 11:52] VITALS: BP 137/67
[2017-04-13] MEDS ORDERED: SINEMET 25/1001 EA ORAL (14:23)
[2017-04-13] MEDS ORDERED: MULTIVITAMINS1 EAC8 ORAL (14:23)
[2017-04-13] MEDS ORDERED: MOM30 ML ORAL (14:23)
[2017-04-13] MEDS ORDERED: FEOSOL325 MG ORAL (14:23)
[2017-04-13] MEDS ORDERED: PROTONIX40 MG ORAL (14:23)
[2017-04-13] MEDS ORDERED: COLACE100 MG/10 ORAL (14:23)
[2017-04-13] MEDS ORDERED: LIPITOR10 MG ORAL (14:23)
--- NOTE | 2017-04-13 14:25 | General Progress Note ---
Assessment/Plan Problem List: (1) CVA (cerebral vascular accident) ICD Codes: I63.9 - Cerebral infarction, unspecified SNOMED: 094320354 (2) Dehydration ICD Codes: E86.0 - Dehydration SNOMED: 53548544 (3) Episode of generalized weakness ICD Codes: R53.1 - Weakness SNOMED: 76939618 (4) Generalized weakness ICD Codes: R53.1 - Weakness SNOMED: 51538281 (5) Failure to thrive (6) Dehydration ICD Codes: E86.0 - Dehydration SNOMED: 58315043 Assessment/Plan antiplt rx monitor for afib/arrhythmia speech rx family declined gt. aware of asp risk Subjective ROS Limited/Unobtainable: Yes Constitutional: Reports: malaise, no symptoms HEENT: Reports: no symptoms Cardiovascular: Reports: no symptoms Respiratory: Reports: no symptoms Gastrointestinal/Abdominal: Reports: difficulty swallowing Genitourinary: Reports: no symptoms Neurologic/Psychiatric: Reports: pre-existing deficit Endocrine: Reports: no symptoms Hematologic/Lymphatic: Reports: no symptoms Allergies: Coded Allergies: No Known Allergies (Unverified , 04/07/17) All Systems: reviewed and negative except above Subjective no events. failed video swallow. d/w dtr kenrick regarding gt. aware of speech recs and concerns about aspiration. Objective Last 24 Hour Vital Signs Date Time Temp Pulse Resp B/P Pulse Ox O2 Delivery O2 Flow Rate FiO2 04/13/17 12:00 64 04/13/17 11:52 97.0 64 20 137/67 100 Room Air 04/13/17 08:00 99 04/13/17 08:00 97.1 91 20 131/78 97 Room Air 04/13/17 04:00 57 04/13/17 04:00 97.9 58 18 121/82 92 Room Air 04/13/17 00:04 97.7 78 20 132/64 95 Room Air 04/13/17 00:00 96 04/12/17 20:17 97.7 60 19 130/66 97 Room Air 04/12/17 20:00 95 04/12/17 16:00 80 04/12/17 15:51 97.3 69 20 117/86 97 Room Air Intake and Output 04/12/17 04/13/17 19:00 07:00 Intake Total 1155 ml 880 ml Balance 1155 ml 880 ml Intake Oral 220 ml IV Total 935 ml 880 ml # Voids 3 4 # Bowel Movements 2 2 Laboratory Tests 04/13/17 08:20: White Blood Count 6.8, Red Blood Count 3.53L, Hemoglobin 10.9L, Hematocrit 31.7L , Mean Corpuscular Volume 90, Mean Corpuscular Hemoglobin 30.8, Mean Corpuscular Hemoglobin Concent 34.3, Red Cell Distribution Width 11.3L, Platelet Count 375, Mean Platelet Volume 6.0L, Neutrophils (%) (Auto) 58.8, Lymphocytes (%) (Auto) 30.8, Monocytes (%) (Auto) 6.6, Eosinophils (%) (Auto) 2.9, Basophils (%) (Auto) 1.0 Height (Feet): 5 Height (Inches): 4.00 Weight (Pounds): 140 Objective General Appearance: WD/WN, alert EENT: PERRL/EOMI Neck: non-tender, normal alignment, supple Cardiovascular: normal peripheral pulses, normal rate, regular rhythm Respiratory/Chest: lungs clear Abdomen: normal bowel sounds, non tender, soft Edema: no edema noted Arm (L), no edema noted Arm (R), no edema noted Leg (L), no edema noted Leg (R), no edema noted Pedal (L), no edema noted Pedal (R), no edema noted Generalized Neurologic: motor weakness - right sided weakness SHAINA [place] April 13, 2017 14:25
[2017-04-13 16:00] VITALS: BP 135/70
[2017-04-13 19:56] VITALS: BP 123/73
[2017-04-13] MEDS ORDERED: Tubing IV Secondary IV ONE (20:40)
--- NOTE | 2017-04-14 02:32 | Progress Note ---
DATE: 04/13/2017 CARDIOLOGY PROGRESS NOTE: SUBJECTIVE: The patient's family members have refused a feeding tube. The patient is at risk for aspiration. No new distress. Monitored rhythm sinus. OBJECTIVE: VITAL SIGNS: Blood pressure is 137/67, heart rate 64, and respiratory rate 20. LUNGS: Clear. CARDIAC: Regular. ABDOMEN: Soft. EXTREMITIES: No edema. NEUROLOGICAL: Moderate cognitive impairment. IMPRESSION: 1. Acute cerebrovascular accident. 2. Dysphagia. 3. Hypertensive heart disease. 4. Type 2 diabetes mellitus. PLAN: 1. Aspiration precautions. 2. Family members are aware of the risks, may consider gastrostomy tube at a later time. 3. Speech therapy. 4. Continue current cardiovascular regimen. 5. Anti-platelet and anti-lipid drugs. 6. Insulin by sliding scale. Riley Harper M.D. DR: Rahel JOB#: [id number] CC:
--- NOTE | 2017-04-14 02:32 | Progress Note ---
DATE: 04/12/2017 CARDIOLOGY PROGRESS NOTE: SUBJECTIVE: The patient's family members are considering a G-tube. The patient is without new distress. OBJECTIVE: VITAL SIGNS: Blood pressure is 123/71, pulse 90, respiratory rate 20, and afebrile. CHEST: Coarse breath sounds. HEART: Regular rhythm and rate. Normal S1 and S2. ABDOMEN: Soft. EXTREMITIES: No edema. IMPRESSION: 1. Acute cerebrovascular accident. 2. Dysphagia. 3. Hypertensive heart disease. 4. Paroxysmal atrial ectopy. 5. Type 2 diabetes mellitus. PLAN: 1. Aspiration precautions. 2. Await family decision regarding gastrostomy tube. 3. Insulin titration by sliding scale. 4. Anti-platelet and anti-lipid therapy. 5. Maintain adequate hydration. Riley Harper M.D. DR: Rahel JOB#: [id number] CC:
--- NOTE | 2017-04-15 06:07 | Discharge Summary ---
Discharge Summary Hospital Course Date of Admission April 07, 2017 at 15:05 Date of Discharge April 13, 2017 at 20:41 Admitting Diagnosis generalized weakness HPI Emmanuel Decker is a 81 year old female who was admitted on April 07, 2017 at 15:05 for Generalized Weakness Hospital Course [id number] Discharge Discharge Disposition Patient was discharged to SNF/Subacute Facility(03) Discharge Diagnoses: Analy Beckett NP April 15, 2017 06:07
--- NOTE | 2017-04-16 00:15 | Discharge Summary 2 SIG ---
DATE OF ADMISSION: 04/07/2017 DATE OF DISCHARGE: 04/13/2017 CONSULTANTS: 1. Nicholas Early M.D. 2. Riley Harper M.D. BRIEF HOSPITAL COURSE: The patient is an 81-year-old female with history of Parkinson disease, anxiety disorder, hypertension and hyperlipidemia with history of seizure disorder. She was transferred from assisted facility with complaints of generalized weakness and altered mentation. According to staff, the patient had been having diarrhea. On evaluation at ED, the patient was weak, withdrawn and not at baseline. Her labs show white count of 7. Troponin was negative. She was admitted for altered mentation and was given IV hydration. She was seen by Dr. Early. The patient had progressive generalized weakness with inability to eat and inability to ambulate. CAT scan of the brain without contrast revealed acute left fuentes radiata infarct with lacunar infarcts in the right thalamus and left basal ganglia. There were chronic microvascular ischemic changes as well as cerebral periventricular deep white matter areas with diffuse atrophy and acute left MCA ischemic stroke with right hemiplegia and lethargy. The patient was given statins and Plavix and given physical therapy and occupational therapy. Dr. Harper was consulted. The patient was given atorvastatin 10 mg and aspirin 81 mg with Plavix 75 mg. Carotid duplex scan revealed irregular plaque in the internal carotid arteries with mild stenosis. Vertebral arteries were patent without evidence of stenosis or steal. An echocardiogram was done with ejection fraction of 55%. She underwent a bedside and video swallow evaluation and showed that the patient is at high risk for aspiration and recommended nonoral feedings and was offered percutaneous endoscopic gastrostomy tube placement, however, family declined. The family was aware of the risks of aspiration. The patient was then discharged to SNF. FINAL DIAGNOSES: 1. 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 2. Parkinson disease. 3. Advanced senile dementia. 4. Dehydration. 5. Failure to thrive. 6. Type 2 diabetes mellitus. 7. Hypertensive heart disease. 8. Dysphagia. Jaden Dangelo M.D. I have been assigned to dictate discharge summary on this account and I was not involved in the patient's management. Analy Beckett N.P. DR: LEIAS JOB#: [id number] CC:
== END 2017-04-13 20:41 | DRG 64 ==
LOC: EDBD 13:42 → EMR 14:12 → 4E 15:05 → EDBEDREQ 15:59 → 2E 04-08 21:37
DX: I63.8 Other cerebral infarction (principal); G93.40 Encephalopathy, unspecified; G20 Parkinson's disease; G81.91 Hemiplegia, unspecified affecting right dominant side; I11.9 Hypertensive heart disease without heart failure; R62.7 Adult failure to thrive; R13.10 Dysphagia, unspecified; E86.0 Dehydration; G40.909 Epilepsy, unspecified, not intractable, without status epilepticus; Z66 Do not resuscitate; E78.5 Hyperlipidemia, unspecified; F41.9 Anxiety disorder, unspecified; F02.80 Dementia in other diseases classified elsewhere, unspecified severity, without behavioral disturbance, psychotic disturbance, mood disturbance, and anxiety; E11.9 Type 2 diabetes mellitus without complications
CPT/HCPCS: 36415; 70450; 71010; 74230; 80053; 81003; 82270; 82550; 82553; 83605; 83690; 84443; 84484; 85025; 86850; 86900; 86901; 87040; 87045; 87081; 93005; 93306; 93880; 95819